=== PATIENT | male | born 1965 | race African-American/Black ===

== ENCOUNTER 2019-04-06 18:09 | Outpatient (CLI) | payer OTHER, SELFPAY ==
--- NOTE | ~2019-04-06 | XR_ITS ---
XR ankle RT min 3V 04/06/2019 18:42 INDICATION: Right ankle pain after twisting injury PROCEDURE: 4 views of the right ankle COMPARISON: No prior studies for comparison. FINDINGS: Fracture, dislocation or subluxation is not identified. Ankle mortise intact. The soft tiss ues appear within normal limits. No foreign bodies are identified. IMPRESSION: 1: NO ACUTE BONE OR JOINT ABNORMALITY IDENTIFIED. Reviewed, dictated and finalized at location A. L [employer]
== END 2019-04-06 18:10 | disposition home or self-care (01) ==
DX: M25.571 Pain in right ankle and joints of right foot (principal)
CPT/HCPCS: 73610